=== PATIENT | female | born 1990 | race Caucasian/White ===

== ENCOUNTER 2022-10-28 08:37 | Emergency (ER) | payer BC, OTHER ==
[2022-10-28 09:07] VITALS: BP 114/75; PULSE 83; RESP 18; TEMP 98.8; BMI 27.3
[2022-10-28] MEDS ORDERED: predniSONE 20 MG TABLET (UD) PO ONE (10:10)
[2022-10-28] MEDS ORDERED: ALBUTEROL SO4 2.5/IPRATROPIUM 0.5 INH SOL 3 ML VIAL.NEB. NEB ONE ×2 (10:11→10:14)
[2022-10-28] MEDS ORDERED: AZITHROMYCIN 250 MG TABLET PO ONE (10:11)
[2022-10-28] MEDS ORDERED: predniSONE 20 MG TABLET (UD) ONE (10:14)
[2022-10-28] MEDS ORDERED: AZITHROMYCIN 500 MG TABLET ONE (10:14)
== END 2022-10-28 10:49 | disposition home or self-care (01) ==
LOC: JER 08:37
PROC: 3E0F7GC Introduction of Other Therapeutic Substance into Respiratory Tract, Via Natural or Artificial Opening (ICD-10-PCS; principal; 2022-10-28)
DX: R05.9 Cough, unspecified (principal); R07.81 Pleurodynia; J40 Bronchitis, not specified as acute or chronic
CPT/HCPCS: 71046-TC-FY; 99283-25